=== PATIENT | female | born 1995 ===

== ENCOUNTER 2017-09-25 19:15 | Emergency (ER) | payer OTHER ==
[~2017-09-25] VITALS: Ht 154.9 cm; Wt 52.6 kg
[2017-09-25 19:21] VITALS: TEMP 36.9; Ht 154.9 cm; Wt 52.6 kg
[2017-09-25] MEDS ORDERED: ONDANSETRON 4MG OD TAB PO STA (20:02)
--- NOTE | 2017-09-25 21:14 | EMERGENCY ROOM VISIT NOTE ---
History First contact with patient: 19:52 Chief Complaint: ED VAG BLEEDING Stated Complaint: BLEEDING, NAUSEA, VOMITING History of Present Illness The patient is a 21 year old female who is obviously intoxicated presents to the Emergency Room with complaints of abnormal vaginal bleeding, cramping and vomiting. The patient states that her last menstrual period was September 06. The patient states that she started having some bleeding yesterday. She does admit to taking plan B 5 days ago and had cramping for 2 days but that is better today but today she started vomiting. She does admit to drinking at least 2 beers in the morning and then having several drinks this afternoon. The patient states that she called her rough patcher in [place] and they told her she may be having a miscarriage. The patient denies any other vaginal discharge. The patient denies any urinary symptoms. Review of Systems 10 system review was performed and was negative unless stated otherwise history of present illness. Past Medical/Surgical History No significant past medical history Social History Smoking Status: Current Every Day Smoker Alcohol Use: heavy Marital Status: single Occupation Status: [employer] student Current/Historical Medications No Active Prescriptions or Reported Meds Physical Exam Vital Signs Date Time Temp Pulse Resp B/P (MAP) Pulse Ox O2 Delivery O2 Flow Rate FiO2 09/25/17 19:21 36.9 107 16 126/89 97 Room Air Physical Exam GENERAL: 21-year-old female appears obviously intoxicated but is in no acute distress. MENTAL Status: Patient is alert and oriented 3. She isn't answering questions appropriately. MOUTH: Mucosa is moist NECK: Supple, no lymphadenopathy noted. No carotid bruits noted. LUNGS: Clear auscultation without wheezes rales or rhonchi. CARDIAC: Regular rate and rhythm without murmur. Pulses is full and equal throughout. BACK: No CVA tenderness noted. ABDOMEN: Positive bowel sounds all 4 quadrants. Soft, nontender to palpation without organomegaly or masses. EXTREMITIES: No cyanosis or edema noted. Medical Decision & Procedures Laboratory Results Test 09/25/17 20:22 Human Chorionic Gonadotropin, Quant < 1 mIU/mL Ethyl Alcohol mg/dL 133.0 mg/dl (0-3) Medications Administered Medications (Trade) Dose Ordered Sig/Antoinette Route Start Time Stop Time Status Last Admin Dose Admin Ondansetron HCl (Zofran Odt) 4 mg NOW STAT PO 09/25/17 20:02 09/25/17 20:04 DC 09/25/17 20:09 4 MG ED Course The patient was evaluated. Quantitative beta-hCG and medical alcohol levels were drawn. The patient was given Zofran 4 mg ODT for nausea. Medical alcohol was 133. Quantitative beta-hCG was less than 1. The patient was informed of the findings and discharged home in stable condition. Medical Decision Differential diagnosis include miscarriage, dysfunctional uterine bleeding, bleeding secondary to plan B., [place] Drug Monitoring Program Search Results: patient reviewed within database Medication Reconcilliation Current Medication List: was personally reviewed by me Blood Pressure Screening Patient's blood pressure: Normal blood pressure Impression Primary Impression: Dysfunctional uterine bleeding Departure Information Dispostion Home / Self-Care Condition GOOD Prescriptions No Active Prescriptions or Reported Meds Referrals No Doctor, Assigned (PCP) Forms HOME CARE DOCUMENTATION FORM, IMPORTANT VISIT INFORMATION, WORK / SCHOOL INSTRUCTIONS Patient Instructions My [employer] Additional Instructions The bleeding and cramping that you are experiencing is most likely from taking the plan B. Recommend using control and condoms in the future to prevent .
[2017-09-25 21:15] VITALS: BP 115/85; PULSE 95; O2SAT 99
== END 2017-09-25 21:15 | disposition home or self-care (01) ==
LOC: C.EDB 19:17 → C.EDA 21:15
DX: N93.8 Other specified abnormal uterine and vaginal bleeding (principal); F17.210 Nicotine dependence, cigarettes, uncomplicated